=== PATIENT | female | born 1990 | race Two or more races ===

== ENCOUNTER 2019-11-12 22:30 | Emergency (ER) | payer SELFPAY ==
[~2019-11-12] VITALS: Ht 162.6 cm; Wt 95.0 kg
[2019-11-13] MEDS ORDERED: KETOROLAC 30MG/ML VIAL IV STA (05:21)
[2019-11-13] MEDS ORDERED: SODIUM CHLORIDE 0.9% 1,000 ML IV ONE (05:21)
[2019-11-13 05:31] LABS: BASOPHILS % 0.6 % (0.0-2.0); EOSINOPHILS % 0.3 % (0.0-5.0); HEMATOCRIT. 39.3 % (36.0-48.0); HEMOGLOBIN. 12.8 g/dL (12.0-16.0); LYMPHOCYTES % 19.7 % (20.0-50.0); MEAN CORPUSCULAR HEMOGLOBIN 26.8 pg (28.0-32.0); MEAN CORPUSCULAR VOLUME 82.4 fL (81.0-99.0); MEAN PLATELET VOLUME 10.8 fl (7.4-10.4); MONOCYTES % 11.2 % (2.0-8.0); NEUTROPHILS % 68.2 % (40.0-76.0); PLATELET 167 x1000/uL (130-400); RED BLOOD CELL COUNT 4.77 mill/uL (4.2-5.4); RED CELL DISTRIBUTION WIDTH 14.6 % (11.6-14.6)
[2019-11-13 05:35] LABS: CHLORIDE 108 mEq/L (98-107)
[2019-11-13 07:37] VITALS: BP 116/77
[2019-11-13 08:47] LABS: *COCAINE SCREEN URINE NEGATIVE (NEGATIVE)
[2019-11-13 08:48] LABS: *BARBITURATES SCREEN URINE NEGATIVE (NEGATIVE); *BENZODIAZEPINES SCREEN URINE NEGATIVE (NEGATIVE); CANNABINOID URINE SCREEN NEGATIVE (NEGATIVE); METHADONE URINE SCREEN NEGATIVE (NEGATIVE); OPIATES URINE SCREEN NEGATIVE (NEGATIVE); PHENCYCLIDINE URINE SCREEN NEGATIVE (NEGATIVE)
[2019-11-13 08:49] LABS: *AMPHETAMINES SCREEN URINE NEGATIVE (NEGATIVE)
== END 2019-11-13 07:45 | disposition home or self-care (01) ==
LOC: ER 22:30
DX: R07.89 Other chest pain (principal); R53.1 Weakness; R00.0 Tachycardia, unspecified; R03.0 Elevated blood-pressure reading, without diagnosis of hypertension
CPT/HCPCS: 36415; 71045; 80053; 80305; 81025; 83880; 84484; 85025; 85379; 93005; 96374; 99284; J1885; J7030